=== PATIENT | female | born 1945 | race African-American/Black ===

== ENCOUNTER 2017-06-16 09:41 | Outpatient (CLI) | payer OTHER | END 2017-06-16 10:00 | disposition home or self-care (01) | LOC: LAB 09:41 | DX: I10 Essential (primary) hypertension (principal); E11.9 Type 2 diabetes mellitus without complications; E03.8 Other specified hypothyroidism; E78.2 Mixed hyperlipidemia; K92.1 Melena; D64.0 Hereditary sideroblastic anemia; Z12.11 Encounter for screening for malignant neoplasm of colon ==

== ENCOUNTER 2018-04-19 08:44 | Outpatient (CLI) | payer OTHER | END 2018-04-19 08:54 | disposition home or self-care (01) | LOC: RAD 08:44 → MAMO-SONO 09:15 | DX: M12.9 Arthropathy, unspecified (principal); M19.90 Unspecified osteoarthritis, unspecified site ==

== ENCOUNTER 2018-07-23 09:28 | Outpatient (CLI) | payer OTHER | END 2018-07-23 09:39 | disposition home or self-care (01) | LOC: LAB 09:28 | DX: R07.89 Other chest pain (principal); I10 Essential (primary) hypertension ==

== ENCOUNTER 2021-07-21 08:30 | Outpatient (CLI) | payer OTHER | END 2021-07-21 08:31 | disposition home or self-care (01) | LOC: NUCLEAR 08:30 | PROVIDERS: ATTEND Internal Medicine Cardiovascular Disease | DX: M81.0 Age-related osteoporosis without current pathological fracture (principal); E55.9 Vitamin D deficiency, unspecified ==

== ENCOUNTER → 2022-05-02 | Outpatient (CLI) | payer OTHER | END | disposition home or self-care (01) | LOC: RAD 08:56 | PROVIDERS: ATTEND Physical Medicine & Rehabilitation | DX: M54.59 Other low back pain (principal); M17.11 Unilateral primary osteoarthritis, right knee ==

== ENCOUNTER → 2022-05-05 | Outpatient (CLI) | payer OTHER | END | disposition home or self-care (01) | LOC: MRI 09:57 | PROVIDERS: ATTEND Physical Medicine & Rehabilitation | DX: M54.16 Radiculopathy, lumbar region (principal) | CPT/HCPCS: 72148 ==

== ENCOUNTER 2023-09-22 09:52 | Outpatient (CLI) | payer OTHER | END 2023-09-22 09:53 | disposition home or self-care (01) | LOC: NUCLEAR 09:52 | PROVIDERS: ATTEND Internal Medicine Cardiovascular Disease | DX: I87.2 Venous insufficiency (chronic) (peripheral) (principal) ==

== ENCOUNTER 2023-12-18 10:32 | Outpatient (CLI) | payer OTHER | END 2023-12-18 10:37 | disposition home or self-care (01) | LOC: RAD 10:32 | PROVIDERS: ATTEND Internal Medicine Cardiovascular Disease | DX: J44.9 Chronic obstructive pulmonary disease, unspecified (principal) ==